=== PATIENT | female | born 1990 | race Caucasian/White ===

== ENCOUNTER 2016-04-03 15:21 | Emergency (ER) | payer BC, OTHER ==
[~2016-04-03] VITALS: Ht 154.9 cm; Wt 120.2 kg
[~2016-04-03 15:21] MED LIST: FLUOXETINE HCL20 MG PO; HYDROCODON-ACE1 EAC7 PO; IBUPROFEN800 MG PO; PERCOCET 5/31 TABLET PO; PRENATAL TABLE1 EAC3 PO; TUMS500 MG PO
[2016-04-03 16:01] LABS: MCH 26.7 PG (29.0-34.0); MCHC 33.8 G/DL (30.0-36.0); MCV 79.2 FL (83-99); PLATELET COUNT 279 K/uL (156-360); RBC DIS.WIDTH-CV 13.8 % (11.8-14.6); RBC DIS.WIDTH-SD 38.8 % (39-53); RED BLOOD COUNT 5.05 M/uL (3.80-5.20); WHITE BLOOD COUNT 11.9 K/uL (4.1-10.2)
[2016-04-03 16:12] LABS: CHLORIDE 106 mEq/L (99-109); POTASSIUM 3.7 mEq/L (3.7-5.4); SODIUM 139 mEq/L (136-147)
[2016-04-03 16:14] LABS: GLUCOSE 90 mg/dL (70-99)
[2016-04-03 16:16] LABS: ANION GAP 10 MEQ/L (2-14); TOTAL BILIRUBIN 0.2 mg/dL (0.0-1.0)
[2016-04-03 16:18] LABS: ALKALINE PHOSPHATASE 125 IU/L (3-129); GFR ESTIMATE (CALCULATED) > 59 mL/min/
[2016-04-03 16:19] LABS: UREA NITROGEN (BUN) 12 mg/dL (9-23)
[2016-04-03 16:28] LABS: QUANTITATIVE HCG < 4.0 MIU/ML
[2016-04-03 16:29] LABS: ADD MIUA? YES; BILIRUBIN NEGATIVE; BLOOD LARGE; COLOR YELLOW ((YELLOW)); GLUCOSE (STRIP) NEGATIVE; KETONES TRACE; LEUKOCYTES SMALL; NITRITE NEGATIVE; PROTEIN (STRIP) 30; SPECIFIC GRAVITY 1.032 (1.000-1.030); UROBILINOGEN 0.2 MG/DL (0.2-1.0)
[2016-04-03 17:15] LABS: BACTERIA 3+; EPITHELIAL CELLS 1+; MUCUS 3+; UCUL ADDED? YES
[2016-04-03 17:16] LABS: CASTS NONE SEEN /LPF; CRYSTALS NONE SEEN
[2016-04-03 18:04] LABS: LIPASE 8 U/L (1.0-51.0)
[2016-04-03] MEDS ORDERED: KEFLEX500 MG PO (19:35)
[2016-04-03 19:46] VITALS: BP 122/70
== END 2016-04-03 19:46 | disposition home or self-care (01) ==
LOC: EXP 15:21 → EME 15:21 → EXP 19:46
DX: R10.13 Epigastric pain (principal); R11.2 Nausea with vomiting, unspecified; Z87.442 Personal history of urinary calculi; R19.7 Diarrhea, unspecified; R05 Cough; F17.200 Nicotine dependence, unspecified, uncomplicated
CPT/HCPCS: 76705; 80053; 81003; 83690; 84702; 85027; 87086; 99281; 99284

== ENCOUNTER 2016-12-11 15:52 | Emergency (ER) | payer BC, OTHER ==
[~2016-12-11] VITALS: Ht 157.5 cm; Wt 130.9 kg
[~2016-12-11 15:52] MED LIST changes: +KEFLEX500 MG PO
[2016-12-11 16:29] LABS: HEMATOCRIT 38.6 % (36.0-46.0); MCH 27.1 PG (29.0-34.0); MCHC 32.9 G/DL (30.0-36.0); MCV 82.5 FL (83-99); MEAN PLAT.VOLUME 10.7 uM^3 (9.5-12.4); PLATELET COUNT 239 K/uL (156-360); RBC DIS.WIDTH-CV 13.5 % (11.8-14.6); RBC DIS.WIDTH-SD 40.5 % (39-53); RED BLOOD COUNT 4.68 M/uL (3.80-5.20); WHITE BLOOD COUNT 12.7 K/uL (4.1-10.2)
[2016-12-11 16:41] LABS: ADD MIUA? YES; BILIRUBIN NEGATIVE; BLOOD NEGATIVE; COLOR YELLOW ((YELLOW)); GLUCOSE (STRIP) NEGATIVE; KETONES NEGATIVE; LEUKOCYTES MODERATE; NITRITE NEGATIVE; PROTEIN (STRIP) NEGATIVE; SPECIFIC GRAVITY 1.024 (1.000-1.030); UROBILINOGEN 0.2 MG/DL (0.2-1.0)
[2016-12-11 16:49] LABS: CHLORIDE 104 mEq/L (99-109); POTASSIUM 3.8 mEq/L (3.7-5.4); SODIUM 138 mEq/L (136-147)
[2016-12-11 16:52] LABS: GLUCOSE 74 mg/dL (70-99)
[2016-12-11 16:53] LABS: ANION GAP 11 MEQ/L (2-14)
[2016-12-11 16:54] LABS: TOTAL BILIRUBIN 0.2 mg/dL (0.0-1.0)
[2016-12-11 16:55] LABS: ALKALINE PHOSPHATASE 100 IU/L (3-129); GFR ESTIMATE (CALCULATED) > 59 mL/min/
[2016-12-11 16:56] LABS: UREA NITROGEN (BUN) 12 mg/dL (9-23)
[2016-12-11 16:59] LABS: LIPASE 12 U/L (1.0-51.0)
[2016-12-11 17:02] LABS: BACTERIA RARE /HPF; EPITHELIAL CELLS RARE /HPF; MUCUS TRACE /LPF; RED BLOOD CELLS 0-5 /HPF (0-5); UCUL ADDED? NO; WHITE BLOOD CELLS 0-5 /HPF (0-5)
[2016-12-11 17:09] LABS: QUANTITATIVE HCG 24283.5 MIU/ML
[2016-12-11 19:25] VITALS: BP 120/84
== END 2016-12-11 19:24 | disposition home or self-care (01) ==
LOC: EME 15:52
DX: O43.891 Other placental disorders, first trimester (principal); O20.8 Other hemorrhage in early pregnancy; O20.0 Threatened abortion; Z3A.01 Less than 8 weeks gestation of pregnancy; K21.9 Gastro-esophageal reflux disease without esophagitis; Z87.891 Personal history of nicotine dependence; Z87.442 Personal history of urinary calculi
CPT/HCPCS: 76801; 80053; 81003; 83690; 84702; 85027; 87086; 99281; 99283

== ENCOUNTER 2017-03-12 10:00 | Emergency (ER) | payer OTHER, BC ==
[~2017-03-12] VITALS: Ht 157.5 cm; Wt 132.3 kg
[2017-03-12 13:39] VITALS: BP 134/79
== END 2017-03-12 13:40 | disposition home or self-care (01) ==
LOC: EME 10:00
DX: Z04.2 Encounter for examination and observation following work accident (principal); O99.89 Other specified diseases and conditions complicating pregnancy, childbirth and the puerperium; Z3A.21 21 weeks gestation of pregnancy
CPT/HCPCS: 76805; 99281; 99283

== ENCOUNTER 2017-07-28 10:38 | Outpatient (CLI) | payer BC, OTHER ==
[2017-07-28] VITALS (9 sets, daily range): BP systolic 101–140; BP diastolic 58–78
[~2017-07-28] VITALS: Ht 154.9 cm; Wt 143.2 kg
[2017-07-28] MEDS ORDERED: VITAFOL-OB+DHA1 EACH PO (16:12)
[2017-07-28 17:04] LABS: BASOPHIL (%) 0.3 % (0-1); EOSINOPHIL (%) 0.3 % (0-5); HEMATOCRIT 34.4 % (36.0-46.0); HEMOGLOBIN 11.1 G/DL (11.9-15.5); IMMATURE GRANULOCYTE (%) 0.4 % (0.0-0.7); LYMPHOCYTE (%) 23.9 % (15-42); LYMPHOCYTE COUNT 3.2 K/uL (1.0-2.8); MCH 26.2 PG (29.0-34.0); MCHC 32.3 G/DL (30.0-36.0); MCV 81.3 FL (83-99); MONOCYTE (%) 4.8 % (3-12); MONOCYTE COUNT 0.7 K/uL (0-0.8); NEUTROPHIL (%) 70.3 % (45-76); NEUTROPHIL COUNT 9.6 K/uL (1.8-6.4); PLATELET COUNT 241 K/uL (156-360); RBC DIS.WIDTH-CV 15.2 % (11.8-14.6); RED BLOOD COUNT 4.23 M/uL (3.80-5.20); WHITE BLOOD COUNT 13.6 K/uL (4.1-10.2)
[2017-07-28 19:51] LABS: AMPHETAMINE NEGATIVE (500 ng/mL); BARBITURATES NEGATIVE (200 ng/mL); BENZODIAZEPINES NEGATIVE (150 ng/mL); BUPRENORPHINE NEGATIVE (10 ng/mL); COCAINE NEGATIVE (150 ng/mL); METHADONE NEGATIVE (200 ng/mL); METHAMPHETAMINE NEGATIVE (500 ng/mL); OPIATES (MORPHINE) NEGATIVE (100 ng/mL); OXYCODONE NEGATIVE (100 ng/mL); PHENCYCLIDINE NEGATIVE (25 ng/mL); PROPOXYPHENE NEGATIVE (300 ng/mL); THC CANNABINOIDS NEGATIVE (50 ng/mL); TRICYCLIC ANTIDEPRESSANTS NEGATIVE (300 ng/mL)
[2017-07-28 22:08] LABS: UR CREATININE CONCENTRATION 117.7 MG/DL
[2017-07-28 22:17] LABS: ALBUMIN 2.6 G/DL (3.2-4.8); ALKALINE PHOSPHATASE 136 IU/L (3-129); ALT (GPT) 10 IU/L (3-49); AST (GOT) 12 IU/L (2-34); CHLORIDE 106 MEQ/L (99-109); CREATININE 0.6 MG/DL (0.6-1.3); GFR ESTIMATE (CALCULATED) > 59 mL/min/; GLUCOSE 84 mg/dL (70-99); SODIUM 137 MEQ/L (136-147); TOTAL BILIRUBIN 0.3 MG/DL (0.0-1.0); TOTAL PROTEIN 5.8 G/DL (6.4-8.3); UREA NITROGEN (BUN) 11 mg/dL (9-23)
[2017-07-29] VITALS (14 sets, daily range): BP systolic 98–133; BP diastolic 52–83
== END 2017-07-29 17:10 | disposition home or self-care (01) ==
LOC: LDRP-OP 10:38 → 2WEST 10:39 → LDRP-OP 08-25 13:55
PROVIDERS: Obstetrics & Gynecology
PROC: 0U7C7ZZ Dilation of Cervix, Via Natural or Artificial Opening (ICD-10-PCS; principal; 2017-07-28)
DX: Z04.1 Encounter for examination and observation following transport accident (principal); O41.03X0 Oligohydramnios, third trimester, not applicable or unspecified; O99.213 Obesity complicating pregnancy, third trimester; E66.9 Obesity, unspecified; Z68.43 Body mass index [BMI] 50.0-59.9, adult; O99.343 Other mental disorders complicating pregnancy, third trimester; F32.9 Major depressive disorder, single episode, unspecified; O99.513 Diseases of the respiratory system complicating pregnancy, third trimester; J30.9 Allergic rhinitis, unspecified; Z87.442 Personal history of urinary calculi; Z3A.40 40 weeks gestation of pregnancy; Y92.481 Parking lot as the place of occurrence of the external cause
CPT/HCPCS: 59025; 76805; 80053; 82570; 84156; 85025; G0378; J7120

== ENCOUNTER 2017-08-06 08:08 | Inpatient (IN) | payer BC, OTHER ==
[2017-08-06] VITALS (30 sets, daily range): BP systolic 68–145; BP diastolic 40–90
[~2017-08-06 08:08] MED LIST changes: +VITAFOL-OB+DHA1 EACH PO
[2017-08-06 10:19] LABS: BASOPHIL (%) 0.2 % (0-1); EOSINOPHIL (%) 1.5 % (0-5); EOSINOPHIL COUNT 0.2 K/uL (0-0.3); HEMATOCRIT 37.3 % (36.0-46.0); IMMATURE GRANULOCYTE (%) 0.4 % (0.0-0.7); LYMPHOCYTE (%) 21.8 % (15-42); MCH 26.3 PG (29.0-34.0); MCHC 32.2 G/DL (30.0-36.0); MCV 81.6 FL (83-99); MONOCYTE (%) 4.4 % (3-12); MONOCYTE COUNT 0.6 K/uL (0-0.8); NEUTROPHIL (%) 71.7 % (45-76); NEUTROPHIL COUNT 9.7 K/uL (1.8-6.4); PLATELET COUNT 232 K/uL (156-360); RBC DIS.WIDTH-CV 15.2 % (11.8-14.6); RBC DIS.WIDTH-SD 44.7 % (39-53); RED BLOOD COUNT 4.57 M/uL (3.80-5.20); WHITE BLOOD COUNT 13.5 K/uL (4.1-10.2)
[2017-08-06 11:09] LABS: AMPHETAMINE NEGATIVE (500 ng/mL); BARBITURATES NEGATIVE (200 ng/mL); BENZODIAZEPINES NEGATIVE (150 ng/mL); BUPRENORPHINE NEGATIVE (10 ng/mL); COCAINE NEGATIVE (150 ng/mL); METHADONE NEGATIVE (200 ng/mL); METHAMPHETAMINE NEGATIVE (500 ng/mL); OPIATES (MORPHINE) NEGATIVE (100 ng/mL); OXYCODONE NEGATIVE (100 ng/mL); PHENCYCLIDINE NEGATIVE (25 ng/mL); PROPOXYPHENE NEGATIVE (300 ng/mL); THC CANNABINOIDS NEGATIVE (50 ng/mL); TRICYCLIC ANTIDEPRESSANTS NEGATIVE (300 ng/mL)
[2017-08-07] VITALS (22 sets, daily range): BP systolic 93–146; BP diastolic 54–82
[2017-08-07 13:42] LABS: HEMATOCRIT 27.2 % (36.0-46.0); MCV 81.7 FL (83-99)
[2017-08-07 13:48] LABS: HEMOGLOBIN 8.9 G/DL (11.9-15.5)
[2017-08-07 22:28] LABS: BASOPHIL (%) 0.2 % (0-1); EOSINOPHIL (%) 0.2 % (0-5); HEMATOCRIT 24.9 % (36.0-46.0); IMMATURE GRANULOCYTE (%) 0.4 % (0.0-0.7); LYMPHOCYTE (%) 13.7 % (15-42); LYMPHOCYTE COUNT 2.4 K/uL (1.0-2.8); MCH 26.8 PG (29.0-34.0); MCHC 32.1 G/DL (30.0-36.0); MCV 83.3 FL (83-99); MONOCYTE (%) 4.3 % (3-12); MONOCYTE COUNT 0.8 K/uL (0-0.8); NEUTROPHIL (%) 81.2 % (45-76); NEUTROPHIL COUNT 14.5 K/uL (1.8-6.4); PLATELET COUNT 178 K/uL (156-360); RBC DIS.WIDTH-CV 15.3 % (11.8-14.6); RBC DIS.WIDTH-SD 46.2 % (39-53); WHITE BLOOD COUNT 17.9 K/uL (4.1-10.2)
[2017-08-07 22:33] LABS: RED BLOOD COUNT 2.99 M/uL (3.80-5.20)
[2017-08-08 02:41] VITALS: BP 108/56
[2017-08-08 05:27] LABS: BASOPHIL (%) 0.2 % (0-1); EOSINOPHIL (%) 0.7 % (0-5); EOSINOPHIL COUNT 0.1 K/uL (0-0.3); HEMATOCRIT 23.7 % (36.0-46.0); HEMOGLOBIN 7.9 G/DL (11.9-15.5); IMMATURE GRANULOCYTE (%) 0.4 % (0.0-0.7); LYMPHOCYTE (%) 20.3 % (15-42); LYMPHOCYTE COUNT 3.6 K/uL (1.0-2.8); MCH 27.4 PG (29.0-34.0); MCHC 33.3 G/DL (30.0-36.0); MCV 82.3 FL (83-99); MONOCYTE (%) 5.1 % (3-12); MONOCYTE COUNT 0.9 K/uL (0-0.8); NEUTROPHIL (%) 73.3 % (45-76); NEUTROPHIL COUNT 13.1 K/uL (1.8-6.4); PLATELET COUNT 163 K/uL (156-360); RBC DIS.WIDTH-CV 15.6 % (11.8-14.6); RBC DIS.WIDTH-SD 45.3 % (39-53); RED BLOOD COUNT 2.88 M/uL (3.80-5.20); WHITE BLOOD COUNT 17.8 K/uL (4.1-10.2)
[2017-08-08 18:15] VITALS: BP 128/74
[2017-08-08 19:15] VITALS: BP 132/92
[2017-08-08 23:00] VITALS: BP 118/63
[2017-08-09 03:25] VITALS: BP 123/75
[2017-08-09 05:37] LABS: BASOPHIL (%) 0.2 % (0-1); EOSINOPHIL (%) 1.7 % (0-5); EOSINOPHIL COUNT 0.2 K/uL (0-0.3); HEMATOCRIT 21.7 % (36.0-46.0); IMMATURE GRANULOCYTE (%) 0.5 % (0.0-0.7); LYMPHOCYTE (%) 20.4 % (15-42); LYMPHOCYTE COUNT 2.8 K/uL (1.0-2.8); MCH 26.9 PG (29.0-34.0); MCHC 32.3 G/DL (30.0-36.0); MCV 83.5 FL (83-99); MONOCYTE (%) 5.2 % (3-12); MONOCYTE COUNT 0.7 K/uL (0-0.8); NEUTROPHIL COUNT 9.9 K/uL (1.8-6.4); PLATELET COUNT 168 K/uL (156-360); RBC DIS.WIDTH-CV 15.8 % (11.8-14.6); RBC DIS.WIDTH-SD 46.9 % (39-53); WHITE BLOOD COUNT 13.8 K/uL (4.1-10.2)
[2017-08-09 07:06] VITALS: BP 130/70
[2017-08-09 10:57] VITALS: BP 122/72
[2017-08-09 11:01] LABS: BASOPHIL (%) 0.3 % (0-1); BASOPHIL COUNT 0.1 K/uL (0-0.1); EOSINOPHIL (%) 2.2 % (0-5); EOSINOPHIL COUNT 0.4 K/uL (0-0.3); HEMATOCRIT 23.9 % (36.0-46.0); HEMOGLOBIN 7.7 G/DL (11.9-15.5); IMMATURE GRANULOCYTE (%) 0.3 % (0.0-0.7); LYMPHOCYTE (%) 19.7 % (15-42); LYMPHOCYTE COUNT 3.2 K/uL (1.0-2.8); MCH 27.2 PG (29.0-34.0); MCHC 32.2 G/DL (30.0-36.0); MCV 84.5 FL (83-99); MONOCYTE (%) 4.4 % (3-12); MONOCYTE COUNT 0.7 K/uL (0-0.8); NEUTROPHIL (%) 73.1 % (45-76); NEUTROPHIL COUNT 11.7 K/uL (1.8-6.4); PLATELET COUNT 214 K/uL (156-360); RBC DIS.WIDTH-CV 15.9 % (11.8-14.6); RBC DIS.WIDTH-SD 47.8 % (39-53); RED BLOOD COUNT 2.83 M/uL (3.80-5.20)
[2017-08-09 14:32] VITALS: BP 120/67
[2017-08-09 23:00] VITALS: BP 108/62
[2017-08-10 07:12] VITALS: BP 126/68
[2017-08-10 15:23] VITALS: BP 121/85
[2017-08-10 23:00] VITALS: BP 113/65
[2017-08-11 07:04] VITALS: BP 109/82
[2017-08-11] MEDS ORDERED: IBUPROFEN800 MG PO (11:43)
[2017-08-11] MEDS ORDERED: FERROUS SULFAT325 MG PO (11:43)
[2017-08-11] MEDS ORDERED: ENDOCET 5-3251 EACH PO (11:43)
== END 2017-08-11 13:05 | disposition home or self-care (01) | DRG 765 ==
LOC: LDRP-OP 08:08 → 2WEST 08:09 → LDRP-OP 08-25 17:59
PROVIDERS: Advanced Practice Midwife; Anesthesiology; Obstetrics & Gynecology
DX: O62.1 Secondary uterine inertia (principal); O90.89 Other complications of the puerperium, not elsewhere classified; O72.1 Other immediate postpartum hemorrhage; O99.02 Anemia complicating childbirth; D62 Acute posthemorrhagic anemia; O48.0 Post-term pregnancy; O76 Abnormality in fetal heart rate and rhythm complicating labor and delivery; O63.0 Prolonged first stage (of labor); O99.214 Obesity complicating childbirth; E66.01 Morbid (severe) obesity due to excess calories; Z68.43 Body mass index [BMI] 50.0-59.9, adult; O99.344 Other mental disorders complicating childbirth; F32.9 Major depressive disorder, single episode, unspecified; Z3A.41 41 weeks gestation of pregnancy; Z37.0 Single live birth
CPT/HCPCS: 71275; 76705; 84443; 85014; 85018; 85025; 85025 91; 86850; 86900; 86901; 86920; 93005; C1755; G0378; J0595; J0690; J2274; J7120; P9016; Q0169

== ENCOUNTER 2017-08-14 05:02 | Emergency (ER) | payer BC, OTHER ==
[~2017-08-14] VITALS: Ht 157.5 cm; Wt 136.4 kg
[~2017-08-14 05:02] MED LIST changes: +ENDOCET 5-3251 EACH PO; +FERROUS SULFAT325 MG PO
[2017-08-14 05:51] LABS: BASOPHIL (%) 0.4 % (0-1); BASOPHIL COUNT 0.1 K/uL (0-0.1); EOSINOPHIL (%) 2.5 % (0-5); EOSINOPHIL COUNT 0.4 K/uL (0-0.3); HEMATOCRIT 26.6 % (36.0-46.0); HEMOGLOBIN 8.7 G/DL (11.9-15.5); IMMATURE GRANULOCYTE (%) 0.9 % (0.0-0.7); LYMPHOCYTE COUNT 3.3 K/uL (1.0-2.8); MCH 27.4 PG (29.0-34.0); MCHC 32.7 G/DL (30.0-36.0); MCV 83.6 FL (83-99); MONOCYTE (%) 5.4 % (3-12); MONOCYTE COUNT 0.8 K/uL (0-0.8); NEUTROPHIL (%) 66.8 % (45-76); NEUTROPHIL COUNT 9.2 K/uL (1.8-6.4); NRBC (%) 0.3 /100 WBC (0-0); RBC DIS.WIDTH-CV 15.1 % (11.8-14.6); RBC DIS.WIDTH-SD 45.7 % (39-53); RED BLOOD COUNT 3.18 M/uL (3.80-5.20); WHITE BLOOD COUNT 13.8 K/uL (4.1-10.2)
[2017-08-14 05:52] LABS: PLATELET COUNT 331 K/uL (156-360)
[2017-08-14 05:58] LABS: ALBUMIN 3.3 g/dL (3.2-4.8)
[2017-08-14 05:59] LABS: CHLORIDE 106 mEq/L (99-109); POTASSIUM 4.1 mEq/L (3.7-5.4); SODIUM 139 mEq/L (136-147)
[2017-08-14 06:01] LABS: GLUCOSE 95 mg/dL (70-99); TOTAL PROTEIN 6.6 g/dL (6.4-8.3)
[2017-08-14 06:03] LABS: TOTAL BILIRUBIN 0.2 mg/dL (0.0-1.0)
[2017-08-14 06:04] LABS: ALKALINE PHOSPHATASE 113 IU/L (3-129)
[2017-08-14 06:05] LABS: CREATININE 0.8 mg/dL (0.6-1.3); GFR ESTIMATE (CALCULATED) > 59 mL/min/
[2017-08-14 06:06] LABS: AST (GOT) 19 IU/L (2-34); DIRECT BILIRUBIN 0.1 mg/dL (0.0-0.3); UREA NITROGEN (BUN) 19 mg/dL (9-23)
[2017-08-14 06:08] LABS: ALT (GPT) 16 IU/L (3-49); LIPASE 8 U/L (1.0-51.0)
[2017-08-14 06:19] LABS: APPEARANCE CLOUDY ((CLEAR)); BILIRUBIN NEGATIVE; BLOOD LARGE; COLOR YELLOW ((YELLOW)); GLUCOSE (STRIP) NEGATIVE; KETONES NEGATIVE; LEUKOCYTES SMALL; NITRITE NEGATIVE; PROTEIN (STRIP) 30; SPECIFIC GRAVITY 1.026 (1.000-1.030); UROBILINOGEN 0.2 MG/DL (0.2-1.0)
[2017-08-14 06:41] LABS: BACTERIA 1+ /HPF; EPITHELIAL CELLS 1+ /HPF; MUCUS NONE SEEN /LPF; RED BLOOD CELLS 20-30 /HPF (0-5)
[2017-08-14] MEDS ORDERED: NORCO 7.5/321 TABLET PO (07:21)
[2017-08-14] MEDS ORDERED: MOTRIN800 MG PO (07:21)
[2017-08-14] MEDS ORDERED: KEFLEX500 MG PO (07:21)
[2017-08-14] MEDS ORDERED: ZOFRAN ODT8 MG PO (07:21)
[2017-08-14 07:34] VITALS: BP 137/69
== END 2017-08-14 07:47 | disposition home or self-care (01) ==
LOC: EME 05:02
PROVIDERS: Physician Assistant
DX: O99.89 Other specified diseases and conditions complicating pregnancy, childbirth and the puerperium (principal); N13.2 Hydronephrosis with renal and ureteral calculous obstruction; F32.9 Major depressive disorder, single episode, unspecified; Z87.442 Personal history of urinary calculi; K21.9 Gastro-esophageal reflux disease without esophagitis; F41.9 Anxiety disorder, unspecified
CPT/HCPCS: 74176; 80048; 80076; 81003; 83690; 85025; 87086; 99281; 99284; J1885